=== PATIENT | female | born 1960 | race Caucasian/White ===

== ENCOUNTER 2018-12-23 07:42 | Day surgery (SDC) | payer OTHER ==
[~2018-12-23 07:42] MED LIST: Bupivacaine 0.5% 30 ML SDV ONE; Bupivacaine 0.5% 50 ML MDV ONE; Midazolam 1 MG/ML 2 ML SDV ONE; Propofol 200 MG/20 ML SDV ONE; fentaNYL 100 MCG/2 ML SDV ONE
[2018-12-23] MEDS ORDERED: Lactated Ringers 1,000 ML IV SCH (08:45)
[2018-12-23] MEDS ORDERED: Nozin Nasal Sanitizer NASBOTH ONE (08:48)
[2018-12-23] MEDS ORDERED: ceFAZolin 2 GM in Sodium Chloride 0.9% 50 ML IV ONE (09:00)
[2018-12-23] MEDS ORDERED: Bupivacaine 0.5% 30 ML SDV ONE (09:22)
[2018-12-23] MEDS ORDERED: Rocuronium 50 MG/5 ML Vial ONE (09:40)
[2018-12-23] MEDS ORDERED: Succinylcholine 200 MG/10 ML MDV ONE (09:40)
[2018-12-23] MEDS ORDERED: Ondansetron 4 MG/2 ML SDV ONE (09:50)
[2018-12-23] MEDS ORDERED: Dexamethasone 4 MG/ML SDV ONE (09:50)
[2018-12-23] MEDS ORDERED: fentaNYL 250 MCG/5 ML SDV ONE (10:12)
[2018-12-23] MEDS ORDERED: Glycopyrrolate 0.2 MG/ML 5 ML MDV ONE (10:26)
[2018-12-23] MEDS ORDERED: Neostigmine Methylsulfate 1 MG/ML 5 ML Syringe ONE (10:26)
[2018-12-23] MEDS ORDERED: fentaNYL 100 MCG/2 ML SDV IVPUSH ONE (11:14)
[2018-12-23] MEDS ORDERED: Ketorolac 60 MG/2 ML SDV IM ONE (12:15)
[2018-12-23] MEDS ORDERED: Acetaminophen/oxyCODONE 325-5 MG Tab PO PRN (12:30)
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
== END 2018-12-23 14:24 | disposition home or self-care (01) ==
LOC: JP.SDS 07:42
PROVIDERS: ATTEND Specialist
DX: M25.811 Other specified joint disorders, right shoulder (principal); M75.111 Incomplete rotator cuff tear or rupture of right shoulder, not specified as traumatic; S43.491A Other sprain of right shoulder joint, initial encounter; M75.51 Bursitis of right shoulder; M65.811 Other synovitis and tenosynovitis, right shoulder; E66.9 Obesity, unspecified; Z68.36 Body mass index [BMI] 36.0-36.9, adult; Z79.2 Long term (current) use of antibiotics; Z91.038 Other insect allergy status; Z87.891 Personal history of nicotine dependence
CPT/HCPCS: 29822; 36415; 80048; 81003; A9270; C1713; J0330; J0690; J1100; J1885; J2250; J2405; J2704; J2710; J3010; J3490; J7050; J7120